=== PATIENT | female | born 1985 ===

== ENCOUNTER 2017-04-06 21:20 | Emergency (ER) | payer SELFPAY ==
[2017-04-06 21:29] VITALS: TEMP 98.2
[2017-04-06] MEDS ORDERED: Sodium Chloride 0.9% 1,000 ML IV ONE (21:51)
[2017-04-06 21:56] LABS: SQUAMOUS EPITHIAL 1 /hpf (0-5); URINE BACTERIA RARE (<OCC); URINE BILIRUBIN NEGATIVE (NEGATIVE); URINE BLOOD NEGATIVE (NEGATIVE); URINE CLARITY Clear (Clear); URINE COLOR Yellow (YELLOW); URINE GLUCOSE (UA) NORMAL (Normal); URINE HYALINE CAST 0-2 /lpf (0-2); URINE LEUKOCYTE ESTERASE NEG Leu/uL (Negative); URINE NITRATE NEGATIVE (NEGATIVE); URINE PROTEIN NEGATIVE (NEGATIVE); URINE UROBILINOGEN NORMAL mg/dL (0.2-1.0)
[2017-04-06] MEDS ORDERED: Sodium Chloride 0.9% 1,000 ML ONE (22:01)
[2017-04-06 22:28] LABS: BASO # 0.1 K/uL (0.0-0.2); BASO % 1.2 % (0.0-2.0); EOS # 0.2 K/uL (0.0-0.7); EOS % 2.2 % (0.0-4.0); HEMOGLOBIN 12.6 g/dL (11.0-16.0); LYMPH # 3.3 K/uL (1.0-4.3); LYMPH % 39.1 % (20.0-40.0); MEAN CELL VOLUME 91.3 fL (81.0-99.0); MEAN CORPUSCULAR HEMOGLOBIN 30.2 pg (27.0-31.0); MEAN CORPUSCULAR HGB CONC 33.1 g/dL (33.0-37.0); MEAN PLATELET VOLUME 8.5 fL (7.2-11.7); MONO # 0.8 K/uL (0.0-0.8); MONO % 9.1 % (0.0-10.0); NEUT # 4.1 K/uL (1.8-7.0); NEUT % 48.4 % (50.0-75.0); NRBC % 0.2 % (0.0-2.0); RBC 4.17 Mil/uL (3.80-5.20); RED CELL DISTRIBUTION WIDTH 13.2 % (11.5-14.5); WHITE BLOOD COUNT 8.4 K/uL (4.8-10.8)
[2017-04-06 22:37] LABS: AST/SGOT 23 U/L (14-36); GFR AFRICAN-AMERICAN > 60; GFR NON-AFRICAN AMERICAN > 60
[2017-04-06 22:38] LABS: ALB/GLOB RATIO 1.1 (1.0-2.1); ALT/SGPT 27 U/L (9-52); BLOOD UREA NITROGEN 20 mg/dL (7-17); CALCIUM 8.5 mg/dl (8.6-10.4)
[2017-04-06] MEDS ORDERED: Potassium Chloride 20 mEq ER Tab PO STA (22:39)
[2017-04-06] MEDS ORDERED: Potassium Chloride 20 mEq ER Tab PO ONE (22:49)
--- NOTE | 2017-04-06 23:51 | C.PDOC ---
History Of Present Illness 31 yo female, hx of ovarian cysts, presents with lower abdominal pain, llq to left side, for 2 weeks. no fevers, n/v/d, urinary changes, blood in urine, vb, discharge. Time Seen by Provider: 04/06/17 21:33 Chief Complaint (Nursing): Abdominal Pain Past Medical History Reviewed: Historical Data, Nursing Documentation, Vital Signs Vital Signs: Last Vital Signs Temp 98.2 F 04/06/17 21:26 Pulse 78 04/06/17 21:26 Resp 16 04/06/17 21:26 BP 127/80 04/06/17 21:26 Pulse Ox 99 04/06/17 21:26 - Medical History PMH: Migraine Family History: States: Unknown Family Hx - Social History Hx Tobacco Use: No Hx Alcohol Use: Yes Hx Substance Use: No - Immunization History Hx Tetanus Toxoid Vaccination: No Hx Influenza Vaccination: No Hx Pneumococcal Vaccination: No Review Of Systems Except As Marked, All Systems Reviewed And Found Negative. Gastrointestinal: Positive for: Abdominal Pain Physical Exam - Physical Exam Appears: Well, No Acute Distress, Other (on phone in nad) Skin: Normal Color, Warm, Dry Eye(s): bilateral: Normal Inspection, PERRL, EOMI Nose: Normal Throat: Normal Neck: Normal Cardiovascular: Rhythm Regular Respiratory: Normal Breath Sounds Gastrointestinal/Abdominal: Normal Exam, Soft, Tenderness (minimal left adexal) , No Guarding, No Rebound Back: Normal Inspection Extremity: Normal ROM ED Course And Treatment - Laboratory Results Result Diagrams: 04/06/17 22:21 04/06/17 22:21 O2 Sat by Pulse Oximetry: 99 Medical Decision Making Medical Decision Making: suspect ovarin cyst . r/o uti. labs imaging pending. Disposition - Disposition Referrals: [facility] [Outside] [facility] [Outside] [facility] [Outside] Jose Luis Tiwari [Staff Provider] - Disposition: HOME/ ROUTINE Disposition Time: 23:51 Condition: STABLE Additional Instructions: please follow up with your doctor/clinic and specialist. return to er with worsening s ymptoms or concerns. Prescriptions: Naproxen 500 mg PO BID PRN #14 tablet.dr DRIVER Reason: Pain, Mild (1-3) Instructions: Ovarian Cyst (ED) - Clinical Impression Clinical Impression: Ovarian cyst
[2017-04-07] VITALS: BP 120/79; PULSE 67; RESP 18; O2SAT 98
--- NOTE | 2017-04-07 09:14 | US ---
HISTORY: Left pelvic pain COMPARISON: None available. TECHNIQUE: Transabdominal and transvaginal pelvic ultrasound was performed. FINDINGS: UTERUS: Measures 8.6 x 3.2 x 5.6 cm. Anteverted, normal in size and appearance. No fibroid or other mass lesion seen. ENDOMETRIUM: Measures 11 mm in diameter. Unremarkable. CERVIX: No cervical abnormality identified. RIGHT OVARY: Measures 4.0 x 2.8 x 3.4 cm. No solid mass. Normal flow. There is a 2.2 cm corpus luteum/hemorrhagic cyst. LEFT OVARY: Measures 2.3 x 2.1 x 2.4 cm. No solid mass. Normal flow. FREE FLUID: There is a small amount of free fluid in the pelvis which may be physiologic or related to cyst rupture. OTHER FINDINGS: None. IMPRESSION: 2.2 cm corpus luteum cyst versus hemorrhagic cyst in the right ovary. Small amount of free fluid in the pelvis may be physiologic or related to cyst rupture in the appropriate clinical setting. A preliminary report was provided by [employer].
== END 2017-04-06 23:59 | disposition home or self-care (01) ==
LOC: C.ER 21:20
DX: N83.209 Unspecified ovarian cyst, unspecified side (principal); E87.6 Hypokalemia
CPT/HCPCS: 76830; 76856; 80053; 81001; 84703; 85025; 96360; 99285; J7040

== ENCOUNTER 2017-05-19 11:28 | Emergency (ER) | payer SELFPAY ==
[2017-05-19 11:35] VITALS: BP 115/76; PULSE 68; RESP 20; TEMP 98.4; O2SAT 99
[2017-05-19] MEDS ORDERED: Naproxen 550 mg Tab PO STA (11:50)
--- NOTE | 2017-05-19 11:51 | C.PDOC ---
History Of Present Illness 31 y/o female presents to ED for evaluation of right sided neck pain, described as stiff, since this morning. Notes that pain is worse with head movement. Denies taking OTC meds for pain. Denies any trauma, nausea, vomiting, headache, visual changes, change in sensation, or fever. Time Seen by Provider: 05/19/17 11:40 Chief Complaint (Nursing): Back Pain History Per: Patient History/Exam Limitations: no limitations Onset/Duration Of Symptoms: Hrs Current Symptoms Are (Timing): Still Present Quality Of Discomfort: "Pain" Previous Symptoms: Neck Pain. denies: Chronic Pain, Prior Injury Associated Symptoms: None. denies: Incontinence, New Weakness, New Numbness Exacerbating Factor(s): Movement Recent travel outside of the [place]: No Additional History Per: Patient Past Medical History Reviewed: Historical Data, Nursing Documentation, Vital Signs Vital Signs: Last Vital Signs Temp 98.4 F 05/19/17 11:33 Pulse 68 05/19/17 11:33 Resp 20 05/19/17 11:33 BP 115/76 05/19/17 11:33 Pulse Ox 99 05/19/17 12:45 - Medical History PMH: Migraine Family History: States: Unknown Family Hx - Social History Hx Tobacco Use: No Hx Alcohol Use: Yes Hx Substance Use: No - Immunization History Hx Tetanus Toxoid Vaccination: No Hx Influenza Vaccination: No Hx Pneumococcal Vaccination: No Review Of Systems Except As Marked, All Systems Reviewed And Found Negative. Constitutional: Negative for: Fever, Chills Eyes: Negative for: Vision Change Gastrointestinal: Negative for: Nausea, Vomiting Musculoskeletal: Positive for: Neck Pain. Negative for: Back Pain Neurological: Negative for: Weakness, Numbness, Headache, Dizziness Physical Exam - Physical Exam Appears: Non-toxic, No Acute Distress Skin: Normal Color, Warm, Dry Head: Atraumatic, Normacephalic Eye(s): bilateral: Normal Inspection, EOMI Nose: Normal Oral Mucosa: Moist Throat: Normal, No Erythema, No Exudate Neck: Decreased ROM (pain exacerbated when head is rotated to ipsilateral side) , No Midline Cervical Tenderness, Paracervical Tenderness (tenderness and muscle spasm to right trapezius ), Supple Lymphatic: Normal Exam Chest: Symmetrical Cardiovascular: Rhythm Regular Respiratory: Normal Breath Sounds Extremity: Normal ROM Extremity: Bilateral: Atraumatic, Normal Color And Temperature, Normal ROM Pulses: Left Radial: Normal, Right Radial: Normal Neurological/Psych: Oriented x3, Normal Speech, Normal Cognition, Normal Motor, Normal Sensation ED Course And Treatment O2 Sat by Pulse Oximetry: 99 (on RA) Pulse Ox Interpretation: Normal Progress Note: Pt was given Naproxen. On re-evaluation, pt reports feeling better. Notes improvement of pain. Pt is being discharged home, and is instructed to follow up with PMD in 1-2 days. Disposition - Disposition Disposition: HOME/ ROUTINE Disposition Time: 11:50 Condition: STABLE Additional Instructions: Follow up with your primary medical doctor or clinic in 2-5 days for further evaluation. Take medications as prescribed. Return to the emergency department at any time if symptoms persist or worsen. 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 - Scribe Statement The provider has reviewed the documentation as recorded by the Scribe Apollo Driscoll All medical record entries made by the Jerome were at my direction and personally dictated by me. I have reviewed the chart and agree that the record accurately reflects my personal performance of the history, physical exam, medical decision making, and the department course for this patient. I have also personally directed, reviewed, and agree with the discharge instructions and disposition.
[2017-05-19] MEDS ORDERED: Naproxen 550 mg Tab PO ONE (11:56)
== END 2017-05-19 12:01 | disposition home or self-care (01) ==
LOC: C.ER 11:28
DX: M43.6 Torticollis (principal)

== ENCOUNTER 2018-10-06 17:30 | Emergency (ER) | payer SELFPAY ==
[2018-10-06 17:47] VITALS: O2SAT 100
--- NOTE | 2018-10-06 18:10 | C.PDOC ---
History Of Present Illness 32 y/o female presents to the ED complaining of persistent left-sided pelvic pain ongoing for 4 days. Pain is described as localized and waxing/waning. Feels similar to a pain from many years ago, and was told she had a cyst at that time. LMP was 09/22/18. No other complaints. 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 Otherwise she denies any vaginal bleeding, discharge, vomiting, diarrhea, or urinary symptoms. <Malena Bailey - Last Filed: 10/06/18 19:15> History Per: Patient History/Exam Limitations: no limitations Onset/Duration Of Symptoms: Days (x 4), Waxing/Waning Current Symptoms Are (Timing): Still Present Severity: None Quality Of Discomfort: "Pain" Associated Symptoms: denies: Fever, Urinary Symptoms Abnormal Vaginal Bleeding: No Last Menstral Period: 09/22/18 <Malena Bailey - Last Filed: 10/06/18 19:15> <Cristobal Ramirez - Last Filed: 10/06/18 20:37> Time Seen by Provider: 10/06/18 17:52 Chief Complaint (Nursing): Abdominal Pain Past Medical History Reviewed: Historical Data, Nursing Documentation, Vital Signs Vital Signs: Last Vital Signs Temp 98.2 F 10/06/18 17:44 Pulse 74 10/06/18 17:44 Resp 16 10/06/18 17:44 BP 138/88 10/06/18 17:44 Pulse Ox 100 10/06/18 17:44 - Medical History PMH: Migraine Family History: States: Unknown Family Hx - Social History Hx Tobacco Use: No Hx Alcohol Use: Yes Hx Substance Use: No - Immunization History Hx Tetanus Toxoid Vaccination: No Hx Influenza Vaccination: No Hx Pneumococcal Vaccination: No <LeoMalena - Last Filed: 10/06/18 19:15> Vital Signs: Last Vital Signs Temp 98.2 F 10/06/18 17:44 Pulse 74 10/06/18 17:44 Resp 16 10/06/18 17:44 BP 138/88 10/06/18 17:44 Pulse Ox 100 10/06/18 19:16 <Cristobal Ramirez - Last Filed: 10/06/18 20:37> Review Of Systems Except As Marked, All Systems Reviewed And Found Negative. Constitutional: Negative for: Fever, Chills Eyes: Negative for: Vision Change Cardiovascular: Negative for: Chest Pain Respiratory: Negative for: Shortness of Breath Gastrointestinal: Negative for: Nausea, Vomiting, Diarrhea Genitourinary: Positive for: Pelvic Pain. Negative for: Dysuria, Frequency, Vaginal Discharge, Vaginal Bleeding Neurological: Negative for: Weakness, Headache <Malena Bailey Last Filed: 10/06/18 19:15> Physical Exam - Physical Exam Appears: Non-toxic, No Acute Distress Skin: Normal Color, Warm, Dry Head: Atraumatic, Normacephalic Eye(s): bilateral: Normal Inspection, PERRL, EOMI Nose: Normal Oral Mucosa: Moist Neck: Normal ROM Chest: Symmetrical Cardiovascular: Rhythm Regular, No Murmur Respiratory: Normal Breath Sounds, No Accessory Muscle Use, Other (NARD) Gastrointestinal/Abdominal: Soft, No Tenderness, No Distention, No Guarding Back: No CVA Tenderness Extremity: Bilateral: Atraumatic, Normal Color And Temperature Neurological/Psych: Oriented x3, Normal Speech <Malena Bailey Last Filed: 10/06/18 19:15> ED Course And Treatment - Laboratory Results Result Diagrams: 10/06/18 18:47 10/06/18 18:47 Urine POC: Negative O2 Sat by Pulse Oximetry: 100 (RA) Pulse Ox Interpretation: Normal <Malena Bailey Last Filed: 10/06/18 19:15> - Laboratory Results Result Diagrams: 10/06/18 18:47 10/06/18 18:47 Lab Results: Urine Color Yellow (YELLOW) 10/06/18 18:07 Urine Clarity Clear (Clear) 10/06/18 18:07 Urine pH 5.0 (5.0-8.0) 10/06/18 18:07 Ur Specific [place] 1.034 (1.003-1.030) H 10/06/18 18:07 Urine Protein 1+ mg/dL (NEGATIVE) H 10/06/18 18:07 Urine Glucose (UA) Normal mg/dL (Normal) 10/06/18 18:07 Urine Ketones Negative mg/dL (NEGATIVE) 10/06/18 18:07 Urine Blood Negative (NEGATIVE) 10/06/18 18:07 Urine Nitrate Negative (NEGATIVE) 10/06/18 18:07 Urine Bilirubin Negative (NEGATIVE) 10/06/18 18:07 Urine Urobilinogen 2.0 mg/dL (0.2-1.0) H 10/06/18 18:07 Ur Leukocyte Esterase Neg Patrick/uL (Negative) 10/06/18 18:07 Urine WBC (Auto) 1 /hpf (0-5) 10/06/18 18:07 Urine RBC (Auto) 1 /hpf (0-3) 10/06/18 18:07 Ur Squamous Epith Cells 5 /hpf (0-5) 10/06/18 18:07 Urine Bacteria Rare (<OCC) 10/06/18 18:07 Pulse Ox Interpretation: Normal Reevaluation Time: 20:35 Reassessment Condition: Improved <Cristobal Ramirez - Last Filed: 10/06/18 20:37> Progress - Data Reviewed Data Reviewed: Lab, Diagnostic imaging, Old records <LeoMalena - Last Filed: 10/06/18 19:15> Medical Decision Making Medical Decision Making: Plan: - Urinalysis - Urine preg <LeoMalena - Last Filed: 10/06/18 19:15> Disposition Counseled Patient/Family Regarding: Studies Performed, Diagnosis - Disposition Disposition Time: 19:15 <LeoMalena - Last Filed: 10/06/18 19:15> Counseled Patient/Family Regarding: Studies Performed, Diagnosis, Need For Followup <LukeCristobal torrez - Last Filed: 10/06/18 20:37> - Disposition Disposition: HOME/ ROUTINE Condition: FAIR Additional Instructions: Please return if symptoms recur Prescriptions: Naproxen [Naprosyn] 1 tab PO BID PRN #25 tab PRN Reason: Pain Instructions: Acute Abdomen (Belly Pain), Adult (DC), Ovarian Cyst (DC), Menstrual Cramps (DC) Forms: [employer] (Sinhala) - Clinical Impression Clinical Impression: Pelvic pain, Abdominal pain, Ovarian cyst, Severe menstrual cramps - Scribe Statement The provider has reviewed the documentation as recorded by the Jerome Harrell Provider Attestation: All medical record entries made by the Joeyibe were at my direction and personally dictated by me. I have reviewed the chart and agree that the record accurately reflects my personal performance of the history, physical exam, medical decision making, and the department course for this patient. I have also personally directed, reviewed, and agree with the discharge instructions and disposition. <Malena Bailey - Last Filed: 10/06/18 19:15> Physician Patient Turnover Patient Signed Over To: Cristobal Ramirez Handoff Comments: FU , DISPO <Malena Bailey - Last Filed: 10/06/18 19:15>
[2018-10-06 18:16] LABS: SQUAMOUS EPITHIAL 5 /hpf (0-5); URINE BACTERIA RARE (<OCC); URINE BILIRUBIN NEGATIVE (NEGATIVE); URINE BLOOD NEGATIVE (NEGATIVE); URINE CLARITY Clear (Clear); URINE COLOR Yellow (YELLOW); URINE GLUCOSE (UA) NORMAL (Normal); URINE LEUKOCYTE ESTERASE NEG Leu/uL (Negative); URINE PROTEIN 1+ mg/dL (NEGATIVE)
[2018-10-06 18:55] LABS: BASO # 0.1 K/uL (0.0-0.2); BASO % 1.4 % (0.0-2.0); EOS # 0.1 K/uL (0.0-0.7); EOS % 2.7 % (0.0-4.0); HEMOGLOBIN 13.9 g/dL (11.0-16.0); LYMPH # 2.1 K/uL (1.0-4.3); LYMPH % 39.9 % (20.0-40.0); MEAN CELL VOLUME 93.1 fL (81.0-99.0); MEAN CORPUSCULAR HEMOGLOBIN 30.5 pg (27.0-31.0); MEAN CORPUSCULAR HGB CONC 32.8 g/dL (33.0-37.0); MEAN PLATELET VOLUME 8.1 fL (7.2-11.7); MONO # 0.6 K/uL (0.0-0.8); MONO % 10.3 % (0.0-10.0); NEUT # 2.4 K/uL (1.8-7.0); NEUT % 45.7 % (50.0-75.0); RBC 4.54 Mil/uL (3.80-5.20); RED CELL DISTRIBUTION WIDTH 13.5 % (11.5-14.5); WHITE BLOOD COUNT 5.3 K/uL (4.8-10.8)
[2018-10-06 19:06] LABS: BLOOD UREA NITROGEN 17 mg/dL (7-17); GFR NON-AFRICAN AMERICAN > 60
[2018-10-06 20:50] VITALS: BP 133/90; PULSE 66; RESP 20; TEMP 97.7
--- NOTE | 2018-10-07 10:46 | US ---
Date of service: 10/06/2018 HISTORY: L PELVIC PAIN COMPARISON: Pelvis/transvaginal ultrasound performed 04/06/17 TECHNIQUE: Real-time transabdominal pelvic ultrasound was performed. In addition a transvaginal pelvic ultrasound was necessary to better depict pelvic anatomy. FINDINGS: UTERUS: Measures 8.7 x 3.2 x 4.2 cm. Anteverted. ENDOMETRIUM: Measures 1.4 cm in diameter. CERVIX: No cervical abnormality identified. RIGHT OVARY: Measures 3.4 x 3.2 x 3.2 cm. Blood flow is demonstrated. Follicles. LEFT OVARY: Measures 3.3 x 2.6 x 2.9 cm. Blood flow is demonstrated. Follicles. FREE FLUID: No significant free fluid noted. OTHER FINDINGS: None. IMPRESSION: No acute pelvic pathology identified. Preliminary impression was provided by [employer].
== END 2018-10-06 20:49 | disposition home or self-care (01) ==
LOC: C.ER 17:30
DX: R10.2 Pelvic and perineal pain (principal); N94.6 Dysmenorrhea, unspecified; N83.209 Unspecified ovarian cyst, unspecified side
CPT/HCPCS: 76830; 76856; 80048; 81001; 81025; 85025; 96374; 99285; J1885